=== PATIENT | female | born 1970 | race Caucasian/White ===

== ENCOUNTER 2019-09-21 23:00 | Observation (INO) ==
[2019-09-21] MEDS ORDERED: DiphenhydrAMINE HCL 50 MG/ML VIAL IV STA (23:23)
[2019-09-21] MEDS ORDERED: FAMOTIDINE 20MG/5ML IV PUSH IV STA (23:23)
[2019-09-21] MEDS ORDERED: PIPERACILLIN/TAZOBACTAM 4.5 GM/120 ML BAG IV ONE (23:32)
[2019-09-21] MEDS ORDERED: PIPERACILL/TAZOBAC CONSULT ACTIVE PRN (23:32)
[2019-09-21 23:57] LABS: Basophils # (auto) 0.02 K/uL (0-0.2); Basophils % (auto) 0.2 %; Eosinophils # (auto) 0.09 K/uL (0-0.5); Eosinophils % (auto) 0.9 %; Hematocrit (blood only) 40.6 % (37-47); Hemoglobin 13.6 g/dL (12.0-16.0); Immature Granulocytes # (auto) 0.03 K/uL (0.00-0.02); Immature Granulocytes % (auto) 0.3 %; Lymphocytes % (auto) 12.4 %; Mean Corpuscular Hemoglobin 29.3 pg (25-34); Mean Corpuscular Hgb Conc 33.5 g/dL (32-36); Mean Corpuscular Volume 87.5 fL (80-100); Mean Platelet Volume 9.6 fL (7.4-10.4); Monocytes # (auto) 0.46 K/uL (0.11-0.59); Monocytes % (auto) 4.4 %; Neutrophils # (auto) 8.59 K/uL (1.4-6.5); Neutrophils % (auto) 81.8 %; Platelet Count 291 K/uL (130-400); RDW Coefficient of Variation 13.1 % (11.5-14.5); Red Blood Count 4.64 M/uL (4.2-5.4); White Blood Count 10.49 K/uL (4.8-10.8)
[2019-09-22 00:16] LABS: Albumin Level 4.3 gm/dl (3.4-5.0); BUN Creatinine Ratio 20.4 (10-20); C Reactive Protein 3.02 mg/dl (0-0.29); Calcium 9.1 mg/dl (8.5-10.1); Creatinine Clr Calc Pharmacy 86.8 ml/min; Est GFR (African American) 97.5; Est GFR (Non-African American) 84.1; Potassium 3.2 mmol/L (3.5-5.1)
[2019-09-22 00:18] LABS: Albumin Globulin Ratio 1.1 (0.9-2); Bilirubin,Total 0.5 mg/dl (0.2-1); Globulin 3.8 gm/dl (2.5-4.0); Total Protein 8.1 gm/dl (6.4-8.2)
[2019-09-22 00:48] LABS: Lyme Ab IgG w/WB Rflx Negative (Negative); Lyme Ab IgM w/WB Rflx Negative (Negative)
--- NOTE | 2019-09-22 01:38 | History & Physical Report ---
Date of Service September 22, 2019 Assessment & Plan (1) Perichondritis: 49 yo F with PMH HLD, Anxiety presents with concerns of L ear redness and swelling. Perichondritis -unclear etiology. 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 Cellulitis and erysipelas lower on differential -IV Zosyn 4.5g q6h -blood cx pending -Lyme serology negative HLD -Cont Atorvastatin 10 mg Anxiety -Cont Venlafaxine 37.5 mg Hypokalemia -3.2 on admit. Repleted with PO -daily BMP FEN/GI: HH Diet DVT Prophylaxis: Ambulation. Low Risk, anticipate short hospitalization. Full Code Dispo: Med Surg History of Present Illness Chief Complaint: ear redness Primary Care Provider: Izzy Delacruz MD 49 yo F with PMH HLD, Anxiety presents to [facility] with concerns of increasing ear redness and swelling. No previous such occurrence like this before. Around noon today, pt noticed increasing redness and swelling of L auricle. Pt states that she thought it was possibly a bug bite, but cannot recall any specific bite that occurred today. Described as aching and throbbing, worse when bending over. No alleviating factors. 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 Associated back pain, but this could be from pt's job she says, which requires her to bend over frequently. Otherwise denies any ear itchiness, discharge, loss of hearing, tinnitus, or feelings of ear fullness. Pt has 3 ear piercing's in [facility] area; however, these are at least 20 years old. No recent ear piercing's, no recent outdoor exposure or recent travel. No one else with similar complaints. Only known allergies to nickel and Crestor, neither of which she was exposed to. Pt with no other acute concerns or complaints. ER Course: IV Diphenhydramine, IV Famotidine, IV Zosyn Pertinent Labs: K 3.2, CRP 3.02, otherwise unremarkable Family Hx: Mother with DM, colonic polyps Social: Denies tobacco, illicit drug use. Social drinker. Surgical Hx: appendectomy, b/l tubal ligation, ORIF procedure, tonsillectomy and adenoidectomy, TH/BSO, wisdom tooth Allergies Allergy/AdvReac Type Severity Reaction Status Date / Time nickel Allergy Mild Rash Verified 09/22/19 00:33 rosuvastatin [From Crestor] Allergy Mild itchy Verified 09/22/19 00:33 Home Medications Home Medications Medication Instructions Recorded Confirmed Type aspirin 81 mg PO HS 10/05/18 09/22/19 History atorvastatin [Lipitor] 10 mg PO HS 10/05/18 09/22/19 History venlafaxine 37.5 mg PO QAM 06/03/19 09/22/19 History naproxen 500 mg PO BIDM 09/22/19 09/22/19 History Past Med/Surg History Medical History Anxiety Surgical History History of appendectomy during hysterectomy History of bilateral tubal ligation History of bladder suspension procedure History of dilatation and curettage History of open reduction and internal fixation (ORIF) procedure left ankle fx--hardware in place History of repair of rectocele History of tonsillectomy and adenoidectomy History of tooth extraction some upper teeth History of total hysterectomy with bilateral salpingo-oophorectomy (BSO) Hx of wisdom tooth extraction Family History Mother Family history of diabetes mellitus Family hx colonic polyps Other No family history of adverse response to anesthesia Social History Preferred Language: Irish 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 Beliefs That Will Affect Care: None Current Living Situation: Spouse Current Living Situation Comment: works out of town mon-fri Other Information That Helps Us Care for You: No Feels Safe at Home: Yes Safety Concerns: Feels Safe At This Time Smoking Status: Never smoker Do You Dip or Chew Tobacco: No ; Second Hand Exposure: No ; Hx Alcohol Use: Yes Alcohol type: other Hx Substance Use: No Review of Systems Review of Systems: All systems reviewed & are unremarkable except as noted in HPI & below Physical Exam Constitutional: WD/WN, vitals as above Eyes: PERRL, conjunctivae normal, anicteric sclerae ENMT: Ears: + external ear abnormality Respiratory: normal respiratory effort, lungs clear to auscultation Cardiovascular: RRR, no murmur, no edema Gastrointestinal (Abdomen): normal bowel sounds, soft, nontender, no hepatosplenomegaly Skin: L auricle with total inflammation and erythema Mildly TTP Erythematous borders outlined with surgi-pen Psychiatric: A+Ox3, euthymic affect Results & Data Vital Signs (Past 12 Hours) Vital Signs Temp Pulse Resp BP Pulse Ox 09/21/19 23:11 37.2 C 97 H 20 171/103 H 98 Laboratory Results Laboratory Results - last 24 hr 09/21/19 09/21/19 09/21/19 23:43 23:43 23:43 WBC 10.49 RBC 4.64 Hgb 13.6 Hct 40.6 MCV 87.5 MCH 29.3 MCHC 33.5 RDW Std Deviation 42.0 RDW Coeff of Shannon 13.1 Plt Count 291 MPV 9.6 Immature Gran % (Auto) 0.3 Neut % (Auto) 81.8 Lymph % (Auto) 12.4 Clinch % (Auto) 4.4 Eos % (Auto) 0.9 Baso % (Auto) 0.2 Immature Gran # (Auto) 0.03 H Neut # (Auto) 8.59 H Lymph # (Auto) 1.30 Clinch # (Auto) 0.46 Eos # (Auto) 0.09 Baso # (Auto) 0.02 Sodium 138 Potassium 3.2 L Chloride 104 Carbon Dioxide 31 Anion Gap 3.0 BUN 17 Creatinine 0.81 Est Cr Clr Drug Dosing 86.8 Est GFR ( Amer) 97.5 Est GFR (Non-Af Amer) 84.1 BUN/Creatinine Ratio 20.4 H Glucose 102 H Calcium 9.1 Total Bilirubin 0.5 AST 8 L ALT 18 Alkaline Phosphatase 124 H C-Reactive Protein 3.02 H Total Protein 8.1 Albumin 4.3 Globulin 3.8 Albumin/Globulin Ratio 1.1 Lyme Disease IgG Ab Negative Lyme Disease IgM Ab Negative Medications Administered Current Inpatient Medications Miscellaneous Information (Consult) 1 ea N/A UD PRN PRN Reason: Consult Stop: 10/21/19 23:31 Code Status & VTE Plan Code Status FULL Supervising Physician Co-Signing Physician Notes Patient was seen and examined by me personally. I reviewed the chart, the orders and discussed the case in detail with Dr. Jose Wolff DO . I read this H&P and agree with its contents to entirety. Resident Activity Tracking Resident Involvement: Resident Care Provided Care Provided: Adult Hospital Medicine
--- NOTE | 2019-09-22 02:00 | Emergency Department Note ---
Entered by Jaja Pleitez acting as a scribe for Juan Carlos Wray MD History of Present Illness General Chief complaint: Bite Stated complaint: BUG BITE Time Seen by Provider: 09/21/19 23:16 Source: patient Mode of arrival: ambulatory Limitations: no limitations History of Present Illness Onset (ago): hour(s) 8 Location: face (left cheek and left ear) Radiation: non-radiation Pain Consistency: + constant Quality: + burning ("warmth and burning") Relieved By: + none Exacerbated By: + none Associated symptoms: + rash (on low back) and + other (+low back pain, -dental pain); no fever/chills and no headaches Treatments prior to arrival: none The patient is a 49 year old female with a past medical history of anxiety who presents to the ED with complaints of a possible bug bite in the area of her left cheek and left ear. She states around noon today, she noticed "warmth and burning" in the area of her left cheek and ear. She denies any pain or itching in the area. She cannot remember something biting her today. She notes her hearing has been a little muffled today. She denies putting in any new earrings or jewelry. She is making saliva normally. She denies any recent fevers or headache. She denies any dental pain. The patient notes she did experience achiness and low back pain earlier today, and she took Tylenol. She did receive her childhood immunizations. Home Medications Home Medications Medication Instructions Recorded Confirmed Type aspirin 81 mg PO HS 10/05/18 09/22/19 History atorvastatin [Lipitor] 10 mg PO HS 10/05/18 09/22/19 History venlafaxine 37.5 mg PO QAM 06/03/19 09/22/19 History naproxen 500 mg PO BIDM 09/22/19 09/22/19 History Allergies Allergy/AdvReac Type Severity Reaction Status Date / Time nickel Allergy Mild Rash Verified 09/22/19 00:33 rosuvastatin [From Crestor] Allergy Mild itchy Verified 09/22/19 00:33 Past Med/Surg History Medical History Anxiety Surgical History History of appendectomy during hysterectomy History of bilateral tubal ligation History of bladder suspension procedure History of dilatation and curettage History of open reduction and internal fixation (ORIF) procedure left ankle fx--hardware in place History of repair of rectocele History of tonsillectomy and adenoidectomy History of tooth extraction some upper teeth History of total hysterectomy with bilateral salpingo-oophorectomy (BSO) Hx of wisdom tooth extraction Family History Mother Family history of diabetes mellitus Family hx colonic polyps Other No family history of adverse response to anesthesia Social History Preferred Language: Occitan Communication Ability: Effective Dipper And Drier Required: No Beliefs That Will Affect Care: None Current Living Situation: Spouse and Family Current Living Situation Comment: works out of town mon-thu Feels Safe at Home: Yes Smoking Status: Never smoker Second Hand Exposure: Yes (mom smoked) ; Hx Alcohol Use: Yes Alcohol type: beer, wine and hard liquor Hx Substance Use: No Review of Systems See HPI for pertinent positives & negatives. and A total of 10 systems reviewed and were otherwise negative Physical Exam Vital Signs Vital Signs - 24 hr 09/21/19 23:11 Temperature 37.2 C Temperature Source Oral Pulse Rate 97 H Respiratory Rate 20 Blood Pressure 171/103 H Blood Pressure Mean 125 Pulse Oximetry 98 Oxygen Delivery Method Room Air Sepsis Recent Fever Within 48 Hours No Sepsis New/Unexplained Change in Mental Status No Sepsis Action Taken by Nursing No Action Required Constitutional: Vital signs reviewed. Eyes: Pupils are equal round reactive to light. Conjunctiva are noninjected. ENT: Pharynx is clear without erythema or exudate. Mucous membranes are moist. Neck supple without meningeal signs. Left pinna is diffusely erythematous, s wollen and tender, extending just below the ear, no drainage from before piercing sites of the ear, no OE or OM, no mastoid tenderness. Respiratory: Clear to auscultation bilaterally. Breath sounds are equal bilaterally. Cardiovascular: Regular rate and rhythm. No rubs or gallops. GI: Soft, nondistended and nontender. Bowel sounds are present. Musculoskeletal: No peripheral edema. No lower extremity tenderness. Integumentary: Scattered erythematous papules, easily blanchable, mid to lower back, no rash elsewhere on the body. No cyanosis. Neurological: The patient is awake and alert. No focal deficits. Psychiatric: Normal affect. Course Course 2317: The patient was evaluated in room C10 and a complete history and physical were performed. 0032: I reevaluated the patient. She has had no change in her symptoms. 0039: I discussed the patients case with Dr. Woodson, Health Systemist. The patient will be further evaluated. Consultations Consultation #1: I discussed the patients case with Dr. Woodson, Health Systemist. The patient will be further evaluated. Time: 00:39 Administered Medications Discontinued Medications Diphenhydramine HCl (Benadryl) 50 mg IV NOW STA Stop: 09/21/19 23:24 Last Admin: 09/21/19 23:45 Dose: 50 mg Documented by: [id number] Famotidine (Pepcid 20mg Iv Push) 20 mg IV ONE STA Stop: 09/21/19 23:24 Last Admin: 09/21/19 23:45 Dose: 20 mg Documented by: [id number] Piperacillin Sod/Tazobactam Sod (Zosyn) 4.5 gm in 120 mls @ 240 mls/hr IV NOW ONE Stop: 09/22/19 00:01 Last Infusion: 09/22/19 00:54 Dose: 0 mls/hr Documented by: [id number] Admin: 09/21/19 23:45 Dose: 240 mls/hr Documented by: [id number] Medical Decision Making Differential Diagnosis The differential diagnoses considered include perichondritis, cellulitis, abscess, sialadenitis, otitis externa, and allergic reaction. Medical Records Attestation: I reviewed the patient's medical records. I did perform a limited focused review of portions of the patient's old chart on the electronic medical record. The patient has had no recent pertinent visits to this hospital. Home Medications Current Medication List: was personally reviewed by me Laboratory Data Attestation: I reviewed the patient's lab results. Result diagrams: 09/21/19 23:43 09/21/19 23:43 Lab Results 09/21/19 09/21/19 09/21/19 Range/Units 23:43 23:43 23:43 WBC 10.49 (4.8-10.8) K/uL RBC 4.64 (4.2-5.4) M/uL Hgb 13.6 (12.0-16.0) g/dL Hct 40.6 (37-47) % MCV 87.5 (80-100) fL MCH 29.3 (25-34) pg MCHC 33.5 (32-36) g/dL RDW Std Deviation 42.0 (36.4-46.3) fL RDW Coeff of Shannon 13.1 (11.5-14.5) % Plt Count 291 (130-400) K/uL MPV 9.6 (7.4-10.4) fL Immature Gran % (Auto) 0.3 % Neut % (Auto) 81.8 % Lymph % (Auto) 12.4 % Garza % (Auto) 4.4 % Eos % (Auto) 0.9 % Baso % (Auto) 0.2 % Immature Gran # (Auto) 0.03 H (0.00-0.02) K/uL Neut # (Auto) 8.59 H (1.4-6.5) K/uL Lymph # (Auto) 1.30 (1.2-3.4) K/uL Garza # (Auto) 0.46 (0.11-0.59) K/uL Eos # (Auto) 0.09 (0-0.5) K/uL Baso # (Auto) 0.02 (0-0.2) K/uL Sodium 138 (136-145) mmol/L Potassium 3.2 L (3.5-5.1) mmol/L Chloride 104 (98-107) mmol/L Carbon Dioxide 31 (21-32) mmol/L Anion Gap 3.0 (3-11) BUN 17 (7-18) mg/dl Creatinine 0.81 (0.6-1.2) mg/dl Est Cr Clr Drug Dosing 86.8 ml/min Est GFR ( Amer) 97.5 Est GFR (Non-Af Amer) 84.1 BUN/Creatinine Ratio 20.4 H (10-20) Glucose 102 H (70-99) mg/dl Calcium 9.1 (8.5-10.1) mg/dl Total Bilirubin 0.5 (0.2-1) mg/dl AST 8 L (15-37) U/L ALT 18 (12-78) U/L Alkaline Phosphatase 124 H (45-117) U/L C-Reactive Protein 3.02 H (0-0.29) mg/dl Total Protein 8.1 (6.4-8.2) gm/dl Albumin 4.3 (3.4-5.0) gm/dl Globulin 3.8 (2.5-4.0) gm/dl Albumin/Globulin Ratio 1.1 (0.9-2) Lyme Disease IgG Ab Negative (Negative) Lyme Disease IgM Ab Negative (Negative) Blood Pressure Blood Pressure Findings: Elevated blood pressure Blood Pressure Disposition: further management by hospitalist MDM Narrative I did evaluate the patient as noted above. The patient is presenting with relatively rapid swelling and redness to her cheek and left ear. On exam she has 4 piercings to that ear which are not new. She has diffuse swelling and erythema concerning for perichondritis. She has no signs of otitis externa or media and has no signs of mastoid tenderness. She does have a rash on her back. IV access was established. I did order blood cultures. I did treat the patient with Zosyn IV. She was also given Benadryl and Pepcid IV for potential hives on her back. I did order and review the patient's blood work as noted in the electronic medical record. Her white count is not significantly elevated but her CRP is elevated. Electrolytes show hypokalemia. I did discuss the test results with the patient. She has no change in her symptoms at this time. I did recommend IV antibiotics and hospitalization and coverage for Pseudomonas. I did discuss the case with the hospitalist and heel caser. Impression & Plan Perichondritis, Cellulitis of face, Hypokalemia Discharge Plan Visit Data Chief Complaint: Bite Stated Complaint: BUG BITE ED Provider: Juan Carlos Wray Discharge Problem: Perichondritis, Cellulitis of face, Hypokalemia Patient Disposition: Being Evaluated by Hospitalist Forms Stand Alone Forms: My [facility] Prescriptions Prescriptions: No Action venlafaxine 37.5 mg Tablet 37.5 mg PO QAM RF: 0 naproxen 500 mg tablet 500 mg PO BIDM RF: 0 atorvastatin [Lipitor] 10 mg Tablet 10 mg PO HS RF: 0 aspirin 81 mg Tablet,Delayed Release (Dr/Ec) 81 mg PO HS RF: 0 Referrals Referrals: Izzy Delacruz MD [Primary Care Provider] - The scribe's documentation has been prepared under my direction and personally reviewed by me in its entirety. I confirm that the note above accurately reflects all work, treatment, procedures, and medical decision making performed by me.
[2019-09-22] MEDS ORDERED: PIPERACILL/TAZOBAC CONSULT ACTIVE PRN (02:42)
[2019-09-22] MEDS ORDERED: ONDANSETRON INJ 2 MG/ML 2 ML VIAL IV PRN (02:42)
[2019-09-22] MEDS ORDERED: ACETAMINOPHEN 325 MG TAB PO PRN (02:42)
[2019-09-22] MEDS ORDERED: ALUMINUM/MAGNESIUM SUSP 30 ML UDC PO PRN (02:42)
[2019-09-22] MEDS: PIPERACILLIN/TAZOBACTAM 4.5 GM in DEXTROSE 5% 100 ML IV SCH ×3 (03:12→19:53)
[2019-09-22] MEDS ORDERED: POTASSIUM CHLORIDE 20 MEQ TABCR PO ONE (03:15)
[2019-09-22] MEDS ORDERED: HydrALAZINE HCL 20 MG/ML VIAL IV PRN (05:15)
--- NOTE | 2019-09-22 06:26 | Billing Data ---
Date of Service September 22, 2019 Coding Level of Care Code 33817 OBS Care - Level 3
[2019-09-22 06:27] LABS: Hematocrit (blood only) 37.7 % (37-47); Hemoglobin 12.2 g/dL (12.0-16.0); Mean Corpuscular Hemoglobin 28.5 pg (25-34); Mean Corpuscular Hgb Conc 32.4 g/dL (32-36); Mean Corpuscular Volume 88.1 fL (80-100); RDW Standard Deviation 42.5 fL (36.4-46.3); Red Blood Count 4.28 M/uL (4.2-5.4); White Blood Count 8.13 K/uL (4.8-10.8)
[2019-09-22 06:28] LABS: Basophils # (auto) 0.02 K/uL (0-0.2); Basophils % (auto) 0.2 %; Eosinophils # (auto) 0.06 K/uL (0-0.5); Eosinophils % (auto) 0.7 %; Immature Granulocytes # (auto) 0.02 K/uL (0.00-0.02); Immature Granulocytes % (auto) 0.2 %; Lymphocytes # (auto) 1.07 K/uL (1.2-3.4); Lymphocytes % (auto) 13.2 %; Mean Platelet Volume 9.8 fL (7.4-10.4); Monocytes # (auto) 0.65 K/uL (0.11-0.59); Neutrophils # (auto) 6.31 K/uL (1.4-6.5); Neutrophils % (auto) 77.7 %; Platelet Count 268 K/uL (130-400); RDW Coefficient of Variation 13.3 % (11.5-14.5)
[2019-09-22 07:08] LABS: Calcium 8.7 mg/dl (8.5-10.1); Creatinine Clr Calc Pharmacy 85.5 ml/min; Est GFR (Non-African American) 82.9
[2019-09-22] MEDS: NAPROXEN 250 MG TAB PO SCH ×2 (08:54→17:31)
[2019-09-22] MEDS: VENLAFAXINE HCL 37.5 MG TAB PO SCH (08:55)
--- NOTE | 2019-09-22 19:26 | Hospitalist Progress Note ---
Date of Service September 22, 2019 Assessment & Plan (1) Perichondritis: 49 yo F with PMH HLD, Anxiety presents with concerns of L ear redness and swelling. Perichondritis -unclear etiology. 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 Cellulitis and erysipelas lower on differential -IV Zosyn 4.5g q6h started in ED, will transition to ciprofloxacin tonight -blood cx pending -Lyme serology negative HLD -Cont Atorvastatin 10 mg Anxiety -Cont Venlafaxine 37.5 mg Hypokalemia -3.2 on admit. Repleted with PO -daily BMP FEN/GI: HH Diet DVT Prophylaxis: Ambulation. Low Risk, anticipate short hospitalization. Full Code Dispo: Med Surg hopefully dispo tomorrow Supervising Physician Co-Signing Physician Notes Resident Physician Supervision Note: I independently interviewed and examined the patient and verified the combs history and physical, reviewed labs and image studies, discussed the case with the resident Dr. Ramos and agree with the findings and care plan. Subjective Ashley Haley is doing well this morning, she remains asymptomatic besides the facial swelling and a faint bit of tenderness behind her ear. She has no other concerns at this time and review of systems was negative, pertinent negatives include no fevers, chills, sweats, pain, tenerness, chest pain, SOB, other rashes or insect bites. She does tell me she had filthy hands at work and was repeatedly scratching her ear which could be our likely route of infection. Review of Systems Review of Systems: All systems reviewed & are unremarkable except as noted in HPI & below Physical Exam Physical Exam: Constitutional: Well appearing 49 year old woman in no apparent distress resting comfortably with large obvious facial swelling Eyes: Anicteric Sclerae, EOMMI Respiratory: NO respiratory distress, no accessory muscle use, lung sounds vesicular in all lung l[place] Cardio: Heart sounds dual, regular rate regular rhythm, no lower limb edema GI: Abdomen soft nontender Skin: Erythematous rash on face and ear, Pinna is very swollen and skin on face is taut and firm. Patient has no tenderness to palpation, line marking edge of rash from last night is the same Results & Data Vital Signs (Past 12 Hours) Vital Signs Temp Pulse Resp BP Pulse Ox 09/22/19 15:23 36.9 C 79 16 143/82 H 96 Resident Activity Tracking Resident Involvement: Resident Care Provided Care Provided: Adult Hospital Medicine
[2019-09-22] MEDS ORDERED: ASPIRIN 81 MG ECTAB PO SCH (21:00)
[2019-09-22] MEDS ORDERED: ATORVASTATIN 10 MG TAB PO SCH (21:00)
[2019-09-22] MEDS: cephALEXin 500 MG CAP PO SCH (23:18)
[2019-09-23] MEDS ORDERED: CIPROFLOXACIN 500 MG TAB PO SCH (09:00)
[2019-09-23] MEDS: NAPROXEN 250 MG TAB PO SCH (09:00)
[2019-09-23] MEDS: VENLAFAXINE HCL 37.5 MG TAB PO SCH (09:09)
[2019-09-23] MEDS: cephALEXin 500 MG CAP PO SCH (09:09)
--- NOTE | 2019-09-23 16:07 | Discharge Summary ---
Date of Service September 23, 2019 Admission HPI Per Admitting Provider 49 yo F with PMH HLD, Anxiety presents to [facility] with concerns of increasing ear redness and swelling. No previous such occurrence like this before. Around noon today, pt noticed increasing redness and swelling of L auricle. Pt states that she thought it was possibly a bug bite, but cannot recall any specific bite that occurred today. Described as aching and throbbing, worse when bending over. No alleviating factors. Pt took 2 tylenol [employer], which helped with discomfort. Associated back pain, but this could be from pt's job she says, which requires her to bend over frequently. Otherwise denies any ear itchiness, discharge, loss of hearing, tinnitus, or feelings of ear fullness. Pt has 3 ear piercing's in L scapha area; however, these are at least 20 years old. No recent ear piercing's, no recent outdoor exposure or recent travel. No one else with similar complaints. Only known allergies to nickel and Crestor, neither of which she was exposed to. Pt with no other acute concerns or complaints. ER Course: IV Diphenhydramine, IV Famotidine, IV Zosyn Pertinent Labs: K 3.2, CRP 3.02, otherwise unremarkable Family Hx: Mother with DM, colonic polyps Social: Denies tobacco, illicit drug use. Social drinker. Surgical Hx: appendectomy, b/l tubal ligation, ORIF procedure, tonsillectomy and adenoidectomy, TH/BSO, wisdom tooth Admission Exam Per Admitting Provider Constitutional: WD/WN, vitals as above Eyes: PERRL, conjunctivae normal, anicteric sclerae ENMT: Ears: + external ear abnormality Respiratory: normal respiratory effort, lungs clear to auscultation Cardiovascular: RRR, no murmur, no edema Gastrointestinal (Abdomen): normal bowel sounds, soft, nontender, no hepatosplenomegaly Skin: L auricle with total inflammation and erythema Mildly TTP Erythematous borders outlined with surgi-pen Psychiatric: A+Ox3, euthymic affect Principal Diagnosis Perichondritis, left ear Discharge Exam Constitutional WD/WN, vitals as above Eyes PERRL, conjunctivae normal, anicteric sclerae ENMT external ear and nose normal, oropharynx normal Neck trachea midline, no thyromegaly Respiratory normal respiratory effort, lungs clear to auscultation Cardiovascular RRR, no murmur, no edema Gastrointestinal (Abdomen) normal bowel sounds, soft, nontender, no hepatosplenomegaly Skin Erythema and swelling of the left ear, improving. Erythema has receded well into the margin of the outlined marking Psychiatric A+Ox3, euthymic affect Discharge Data Allergies Allergy/AdvReac Type Severity Reaction Status Date / Time nickel Allergy Mild Rash Verified 09/22/19 00:33 rosuvastatin [From Crestor] Allergy Mild itchy Verified 09/22/19 00:33 Hospital Course (1) Perichondritis: Perichondritis: 49 yo F with PMH HLD, Anxiety presents with concerns of L ear redness and swelling. Treated for perichondritis. Perichondritis IV Zosyn 4.5g q6h started in ED, transitioned to p.o. ciprofloxacin for pseudomonal coverage. Blood cultures negative the time of discharge Continues to improve at the time of discharge. Continue ciprofloxacin 500 mg twice daily for 8 more days Advised the patient see primary care in 2 to 3 days, if not improving at that time would recommend better gram positive coverage HLD -Cont Atorvastatin 10 mg Anxiety -Cont Venlafaxine 37.5 mg Hypokalemia -3.2 on admit. Repleted with PO -daily BMP (2) Cellulitis of face: Total Time Total Time Spent Total Time Spent (In Minutes): Greater than 30 minutes Total Time Includes: Examination of the Patient, Discharge Planning, Medication Reconciliation and Communication With Other Providers Discharge Plan Discharge Items Patient Disposition: Home - Self-Care Reason For Visit: PERICHONDRITIS Discharge Diagnosis: Perichondritis Condition on Discharge: Good Activity: Resume your previous activity Non-emergency contact: Primary Care Provider Call non-emergency contact if: you have any medication questions Follow-up/Referrals: Izzy Delacruz MD [Primary Care Provider] - Diet: Heart Healthy Addtl Attending Provider Instructions: We are discharging you home with an antibiotic for your left ear infection. You will take ciprofloxacin 500 mg twice daily for the next 8 days. We want you to follow-up with your primary care doctor in the next 2 to 3 days to assess the infection. You may notice some pain and swelling into your left neck. This is normal with clearing of the infection, although be sure to notice if you have any trouble swallowing or breathing. We do not anticipate this, but at that time, we recommend that you follow-up in the emergency room. Pending Studies at Discharge: No Stand-Alone Forms: My [facility], Smoking Cessation Medications and DC Order Prescriptions: New ciprofloxacin HCl 500 mg tablet 500 mg PO BID 8 Days Qty: 16 RF: 0 Continued venlafaxine 37.5 mg Tablet 37.5 mg PO QAM RF: 0 naproxen 500 mg tablet 500 mg PO BIDM RF: 0 atorvastatin [Lipitor] 10 mg Tablet 10 mg PO HS RF: 0 aspirin 81 mg Tablet,Delayed Release (Dr/Ec) 81 mg PO HS RF: 0 Discharge Orders: Discharge Order (Routine); Ordered 09/23/19 Ordered By: Jh Vizcaino Admission Data Admit Date/Time: 09/22/19 02:10 Attending Provider: Neema Gauthier Admit Provider: Jose Wolff Primary Care Provider: Izzy Delacruz Other Providers: Javon Woodson Other Interventions: Discharge Summary Assessment (RN) Last Done: 09/23/19 15:18 DC Date/Time DO NOT enter until pt leaves facility: 09/23/19 16:31 Supervising Physician Co-Signing Physician Notes Resident Physician Supervision Note: I independently interviewed and examined the patient and verified the combs history and physical, reviewed labs and image studies, discussed the case with the resident Dr. Vizcaino and agree with the findings and care plan. Resident Activity Tracking Resident Involvement: Resident Care Provided Care Provided: Adult Hospital Medicine
== END 2019-09-23 16:31 | disposition home or self-care (01) ==
LOC: ED 23:00 → 3N 23:00 → SUATTDRO 09-22 02:10 → 3N 09-22 02:33